=== PATIENT | male | born 1995 | race Caucasian/White ===

== ENCOUNTER 2017-06-08 22:49 | Emergency (ER) | payer MEDICAID, OTHER ==
[~2017-06-08] VITALS: Ht 182.9 cm; Wt 136.1 kg
[~2017-06-08 22:49] MED LIST: ACHD5005 PO; CEFP500T4 PO; CETI5TAB25 PO; CLIN-62 PO; CLIN150C17 PO; CLIN300C3 PO; CYCL10TA9 PO; FLT05NA16 NSEACH; HYDR-3714 PO; HYDR-3816 PO; LACT1CAP57 PO; NAPR-243 PO; NAPR550T PO; ONDA-42 SL; ONDA8TAB13 PO; QTP25T PO; TRAM50TA2 PO; TRAZ150T42 PO; VNL75T PO; [UNRECOGNIZED DRUG - CODE] PO
[2017-06-08] MEDS ORDERED: RX-TRAMADOL 50 MG (ULTRAM) TAB PPK#4 PO STA (23:45)
[2017-06-08] MEDS ORDERED: RX-CLINDAMYCIN 150 MG (CLEOCIN) CAP PPK#4 PO STA (23:45)
[2017-06-08] MEDS ORDERED: CLIN300C11 PO (23:51)
[2017-06-08] MEDS ORDERED: TRAM50TA2 PO (23:51)
--- NOTE | 2017-06-08 23:51 | ED EENT ---
History of Present Illness General Chief Complaint: Dental Problems/Pain Stated Complaint: DENTAL PAIN Nursing Triage Note: RIGHT UPPER DENTAL PAIN X3 DAYS, WORSE TONIGHT. Source: patient Exam Limitations: no limitations History of Present Illness Time seen by provider: 23:35 Initial Comments 22-year-old male patient presents to the emergency department with complaints of right upper dental pain for 3 days. Reports pain is worse tonight. Timing/Duration: gradual Location: dental Prearrival Treatment: no prearrival treatment Modifying Factors: Worse With Other (worse with chewing and palpation) Allergies and Home Medications Allergies Coded Allergies: Penicillins (Unverified Allergy, Severe, STATES HE DIES, 10/03/10) Home Medications Clindamycin HCl 150 Mg Capsule, 300 MG PO TID, #42 Ref 0 Prescribed by: LOUISE AVILES on 09/05/1555 Hydrocodone/Acetaminophen 1 Each Tablet, 1 EACH PO Q6H, #18 Ref 0 Prescribed by: LOUISE AVILES on 09/05/1555 Review of Systems Constitutional: No chills, No dizziness, No fever, No malaise Eyes: No Symptoms Reported Ears: No Symptoms Reported Nose: no symptoms reported Mouth: see HPI, pain, denies swelling Throat: denies pain, denies swelling, denies neck stiffness, denies hoarse, denies painful swallowing, denies difficulty with fluids Respiratory: no symptoms reported Cardiovascular: no symptoms reported Gastrointestinal: No diarrhea, No loss of appetite, No nausea, No vomiting Skin: no symptoms reported Neurological: Denies Headache All Other Systems Reviewed Negative Unless Noted: Yes (Negative excepted noted.) Past Wsjipju-Nwubss-Qtqvye Hx Patient Social History Alcohol Use: Denies Use Recreational Drug Use: No Smoking Status: Current Everyday Smoker Type Used: Cigarettes 2nd Hand Smoke Exposure: Yes Recent Foreign Travel: No Contact w/Someone Who Travel: No Recent Infectious Disease Expo: No Recent Hopitalizations: No Immunizations Up To Date Tetanus Booster (TDap): Less than 5yrs Seasonal Allergies Seasonal Allergies: Yes Surgeries HX Surgeries: No Surgeries: Vasectomy Respiratory Hx Respiratory Disorders: No Cardiovascular Hx Cardiac Disorders: No Neurological Hx Neurological Disorders: No Reproductive System Hx Reproductive Disorders: No Sexually Transmitted Disease: No HIV/AIDS: No Genitourinary Hx Genitourinary Disorders: No Gastrointestinal Hx Gastrointestinal Disorders: No Musculoskeletal Hx Musculoskeletal Disorders: Yes (FREQUENT NECK PAIN) Endocrine Hx Endocrine Disorders: No HEENT HX ENT Disorders: Yes (TMJ, CHRONIC DENTAL PROBLEMS) Cancer Hx Cancer: No Psychosocial Hx Psychiatric Problems: Yes Behavioral Health Disorders: ADD/ADHD, Sleep Difficulties, Anxiety Integumentary HX Skin/Integumentary Disorder: No Blood Transfusions Hx Blood Disorders: No Reviewed Nursing Assessment Reviewed/Agree w Nursing PMH: Yes Family Medical History Significant Family History: No Pertinent Family Hx Family Medial History: Patient reports no known family medical history. Physical Exam Vital Signs Vital Sign - Last 12Hours 06/08/17 23:24 Temp 97.7 Pulse 70 Resp 18 B/P (MAP) 140/101 Pulse Ox 95 O2 Delivery Room Air General Appearance: WD/WN, no apparent distress Eyes: bilateral eye EOMI, bilateral eye PERRL, bilateral eye normal inspection Ears: bilateral ear TM normal, bilateral ear auricle normal, bilateral ear canal normal Nose: normal inspection Mouth/Throat: pharynx normal, dental tenderness (rt upper dental tenderness with multiple dental caries noted. mild swelling and erythema of the rt upper gums.), No excessive drooling, No mandibular swelling, No maxillary swelling Neck: non-tender, full range of motion, supple, normal inspection Cardiovascular: regular rate, rhythm, no murmur Respiratory: lungs clear, normal breath sounds, no respiratory distress Neurologic/Psychiatric: alert, normal mood/affect, oriented x 3 Skin: normal color, warm/dry Laceration Repair : Suture Size: 4-0 Progress/Results/Core Measures Results/Orders My Orders Orders - NOLVIA LEAL Rx-Clindamycin Capsule (Rx-Cleocin Capsu (06/08/17 23:45) Rx-Tramadol Hcl (Rx-Ultram) (06/08/17 23:45) Vital Signs/I&O Vital Sign - Last 12Hours 06/08/17 23:24 Temp 97.7 Pulse 70 Resp 18 B/P (MAP) 140/101 Pulse Ox 95 O2 Delivery Room Air Blood Pressure Mean: 114 Departure Impression Impression: Primary Impression: Dental infection Additional Impression: Dental caries Disposition: 01 HOME, SELF-CARE Condition: Improved Departure-Patient Inst. Decision time for Depature: 23:49 Referrals: [facility] (PCP/Family) Primary Care Physician Patient Instructions: Dental Pain (DC) Add. Discharge Instructions: All discharge instructions reviewed with patient and/or family. Voiced understanding. Medications as instructed. Tylenol extra strength over-the- counter as directed for pain. Ibuprofen 800 mg by mouth every 8 hours as needed for pain. Drink plenty of fluids. Follow-up with the dentist of your choice for dental repair. Call for appointment time tomorrow morning. Return to the emergency department for worsened symptoms or any other concerns. Scripts Tramadol HCl (Tramadol HCl) 50 Mg Tablet 50 MG PO Q4H Y for pain, #14 TAB 0 Refills Prov: NOLVIA LEAL 06/08/17 Clindamycin HCl (Clindamycin HCl) 300 Mg Capsule 300 MG PO QID, #28 CAP 0 Refills Prov: NOLVIA LEAL 06/08/17 NOLVIA LEAL Jun 08, 2017 23:51
[2017-06-09 00:03] VITALS: BP 140/101
== END 2017-06-08 23:57 | disposition home or self-care (01) ==
LOC: EDUNIT# 22:49 → ER 22:51
DX: K04.7 Periapical abscess without sinus (principal); K02.9 Dental caries, unspecified; F90.9 Attention-deficit hyperactivity disorder, unspecified type; F98.8 Other specified behavioral and emotional disorders with onset usually occurring in childhood and adolescence; F41.9 Anxiety disorder, unspecified; F17.210 Nicotine dependence, cigarettes, uncomplicated; Z98.52 Vasectomy status
CPT/HCPCS: 99283

== ENCOUNTER 2019-10-11 12:26 | Emergency (ER) | payer OTHER, MEDICAID ==
[~2019-10-11] VITALS: Ht 182 cm; Wt 136.0 kg
[~2019-10-11 12:26] MED LIST changes: +CLIN300C11 PO; +HYDR-34 PO; -HYDR-3816 PO; +TRM50T PO
[2019-10-11] MEDS ORDERED: LIDOCAINE 1% INJ 20 ML 20 ML VIAL ONE (12:36)
[2019-10-11] MEDS ORDERED: TETANUS,DIPTH,PERTUSS P/F (BOOSTRIX) 0.5 ML VIAL IM ONE (12:45)
[2019-10-11] MEDS ORDERED: LIDOCAINE 1% INJ 50 ML (XYLOCAINE) VIAL IJ ONE (12:45)
--- NOTE | 2019-10-11 13:02 | ED Upper Extremity ---
General Chief Complaint: Laceration Stated Complaint: R THUMB INJ Nursing Triage Note: PT FROM [facility] [employer], PT CUT R THUMB ON METAL AT WORK. PT HAS APPROX 1.5CM LAC TO THUMB, SPURTING BLOOD. Nursing Sepsis Screen: No Definite Risk Source: patient Exam Limitations: no limitations History of Present Illness Date Seen by Provider: Oct 11, 2019 Time Seen by Provider: 12:58 Initial Comments Is to ER with a laceration to the palmar surface proximal phalanx right thumb from a piece of sheet metal at work at [employer] in [place]. Tetanus is not up-to-date. Onset: just prior to arrival Severity: moderate Pain/Injury Location: right thumb Modifying Factors: Worse With Movement Allergies and Home Medications Allergies Coded Allergies: Penicillins (Unverified Allergy, Severe, STATES HE DIES, 10/03/10) Home Medications No Active Prescriptions or Reported Meds Patient Home Medication List Home Medication List Reviewed: Yes Review of Systems Constitutional: see HPI EENTM: see HPI Respiratory: no symptoms reported Cardiovascular: no symptoms reported Genitourinary: no symptoms reported Musculoskeletal: no symptoms reported Skin: see HPI Psychiatric/Neurological: No Symptoms Reported Past Xkbckdr-Ffduph-Smhgyp Hx Patient Social History Alcohol Use: Denies Use Recreational Drug Use: No Smoking Status: Current Everyday Smoker Type Used: Cigarettes 2nd Hand Smoke Exposure: Yes Recent Foreign Travel: No Contact w/Someone Who Travel: No Recent Infectious Disease Expo: No Recent Hopitalizations: No Physical Abuse: No Sexual Abuse: No Immunizations Up To Date Tetanus Booster (TDap): Unknown Seasonal Allergies Seasonal Allergies: Yes Past Medical History Surgeries: Yes Vasectomy Respiratory: No Cardiac: No Neurological: No Reproductive Disorders: No Sexually Transmitted Disease: No HIV/AIDS: No Genitourinary: No Gastrointestinal: No Musculoskeletal: Yes (FREQUENT NECK PAIN) Endocrine: No HEENT: No Cancer: No Psychosocial: Yes ADD/ADHD, Sleep Difficulties, Anxiety Integumentary: No Blood Disorders: No Family Medical History Patient reports no known family medical history. No Pertinent Family Hx Physical Exam Vital Signs Vital Signs - First Documented 10/11/19 12:30 Temp 36.4 Pulse 120 Resp 18 B/P (MAP) 135/100 (112) Pulse Ox 99 Capillary Refill : Less Than 3 Seconds Height, Weight, BMI Height: 6'0" Weight: 300lbs. oz. 136.834087my; 41.00 BMI Method:Stated General Appearance: WD/WN, no apparent distress HEENT: PERRL/EOMI, normal ENT inspection Respiratory: no respiratory distress, no accessory muscle use Shoulder: normal inspection, non-tender Elbow/Forearm: normal inspection, non-tender Wrist: Yes normal inspection Hand: Right, laceration (1.5 cm laceration depth to the subcutaneous tissue palmar/flexor surface proximal phalanx right thumb no foreign body identified. He has reduced sensation of the tip, states it feels a little numb. He is able to flex the thumb at the IP joint against resistance however.) Neurologic/Tendon: normal motor functions, normal tendon functions Neurologic/Psychiatric: alert, normal mood/affect, oriented x 3 Skin: normal color, warm/dry Procedures/Interventions Wound Location: Upper Extremities Wound Length (cm): 1.5 Wound's Depth, Shape: linear, sub Q Wound Explored: clean Anesthesia: 1% Lidocaine Suture Size: 4-0 Number of Sutures: 4 Layer Closure?: 1 Number Deep Layer Sutures: 0 Progress/Results/Core Measures Results/Orders My Orders Orders - CHETAN GAONA APRN Lidocaine 1% Inj 20 Ml (Xylocaine 1% Inj (10/11/19 12:36) Medications Given in ED Current Medications Medications Dose Ordered Sig/Kathy Route Start Time Stop Time Status Last Admin Dose Admin Diphtheria/ Tetanus/Acell Pertussis 0.5 ml ONCE ONCE IM 10/11/19 12:45 10/11/19 12:46 DC 10/11/19 12:41 0.5 ML Lidocaine HCl 20 ml STK-MED ONCE .ROUTE 10/11/19 12:36 10/11/19 12:39 DC 10/11/19 12:42 5 ML Vital Signs/I&O 10/11/19 12:30 Temp 36.4 Pulse 120 Resp 18 B/P (MAP) 135/100 (112) Pulse Ox 99 Blood Pressure Mean: 112 POS Departure Communication (Admissions) He did have a vasovagal type episode involving diaphoresis lightheadedness nausea during suturing, once we were done suturing he was laid back supine, returned to baseline. Impression Primary Impression: Laceration of thumb Qualified Codes: S61.011A - Laceration without foreign body of right thumb without damage to nail, initial encounter Disposition: 01 HOME, SELF-CARE Condition: Stable Departure-Patient Inst. Decision time for Depature: :00 Referrals: [facility] (PCP/Family) Primary Care Physician Patient Instructions: Laceration Repair With Stitches (DC) Add. Discharge Instructions: Keep this clean dry and covered. He can take the bandage off to shower letting water run over it but don't soak this in water such as a hot tub bath tub or swimming pool. Return to ER to have this removed in 7-10 days. Scripts No Active Prescriptions or Reported Meds Work/School Note: Work Release Form Date Seen in the Emergency Department: Oct 11, 2019 Return to Work: Oct 12, 2019 Other Restrictions Listed Below: Dressing on right thumb, no use of right thumb for 7 days CHETAN GAONA APRN Oct 11, 2019 13:02 POS
[2019-10-11 13:17] VITALS: BP 135/100
== END 2019-10-11 13:18 | disposition home or self-care (01) ==
LOC: EDUNIT# 12:26 → ER 12:27
DX: S61.011A Laceration without foreign body of right thumb without damage to nail, initial encounter (principal); F90.9 Attention-deficit hyperactivity disorder, unspecified type; F41.9 Anxiety disorder, unspecified; F17.210 Nicotine dependence, cigarettes, uncomplicated; Z23 Encounter for immunization; Z88.0 Allergy status to penicillin; W26.8XXA Contact with other sharp object(s), not elsewhere classified, initial encounter; Y92.59 Other trade areas as the place of occurrence of the external cause
CPT/HCPCS: 12041; 90471; 90715

== ENCOUNTER 2020-08-12 22:32 | Observation (INO) | payer MEDICAID ==
[~2020-08-12] VITALS: Ht 183 cm; Wt 157.0 kg
--- NOTE | 2020-08-12 23:43 | ED GI ---
General Chief Complaint: Abdominal/GI Problems Stated Complaint: FOOD STUCK Source of Information: Patient Exam Limitations: No Limitations History of Present Illness Date Seen by Provider: Aug 12, 2020 Time Seen by Provider: 23:25 Initial Comments This is a healthy 25-year-old male who presents to the ER if food bolus of chicken stuck in his esophagus. Eating dinner around 9:30 this evening, took a bite of his food and became stuck in his lower esophagus. He is unable to drink any fluids at this time as he experiences emesis anytime he tries to drink or eat anything. Describes sensation as a pressure in his lower esophagus. Denies fever, cough, shortness of breath, chest pain, nausea, or abdominal pain. Allergies and Home Medications Allergies Coded Allergies: Penicillins (Unverified Allergy, Severe, STATES HE DIES, 10/03/10) Home Medications No Active Prescriptions or Reported Meds Patient Home Medication List Home Medication List Reviewed: Yes Review of Systems Review of Systems Constitutional: no symptoms reported EENTM: See HPI Respiratory: No Symptoms Reported Cardiovascular: No Symptoms Reported Gastrointestinal: No Symptoms Reported Genitourinary: No Symptoms Reported Musculoskeletal: no symptoms reported Skin: no symptoms reported Psychiatric/Neurological: No Symptoms Reported Endocrine: No Symptoms Reported Hematologic/Lymphatic: No Symptoms Reported Past Zmwioho-Dglmfs-Fmldlb Hx Patient Social History Type Used: Cigarettes 2nd Hand Smoke Exposure: Yes Recent Foreign Travel: No Contact w/Someone Who Travel: No Recent Hopitalizations: No Immunizations Up To Date Tetanus Booster (TDap): Unknown Seasonal Allergies Seasonal Allergies: Yes Past Medical History Surgeries: Yes Vasectomy Respiratory: No Cardiac: No Neurological: No Reproductive Disorders: No Sexually Transmitted Disease: No HIV/AIDS: No Genitourinary: No Gastrointestinal: No Musculoskeletal: Yes (FREQUENT NECK PAIN) Endocrine: No HEENT: No Cancer: No Psychosocial: Yes ADD/ADHD, Sleep Difficulties, Anxiety Integumentary: No Blood Disorders: No Family Medical History Patient reports no known family medical history. No Pertinent Family Hx Physical Exam Vital Signs Capillary Refill : Height/Weight/BMI Height: 6'0" Weight: 300lbs. oz. 136.493622sm; 41.00 BMI Method:Stated General Appearance: WD/WN, no apparent distress HEENT: PERRL/EOMI, pharynx normal Neck: non-tender, full range of motion, supple, normal inspection Respiratory: chest non-tender, lungs clear, normal breath sounds, no respiratory distress Cardiovascular: normal peripheral pulses, regular rate, rhythm, no edema Gastrointestinal: normal bowel sounds, non tender, soft Extremities: normal range of motion, normal inspection Neurologic/Psychiatric: no motor/sensory deficits, alert, normal mood/affect, oriented x 3 Skin: normal color, warm/dry Procedures/Interventions Suture Size: 4-0 Progress/Results/Core Measures Results/Orders My Orders Orders - SHELDON JEFFERSON CLEANER WALL Nothing By Mouth (08/13/20 Breakfast) Glucagon Emergency Kit (Glucagon Emergen (08/13/20 00:00) Departure Communication (Admissions) Time/Spoke to Admitting Phy: 23:[address] hong at this time. Recommended observation admit and to be scheduled for EGD with biopsy and dilatation in the a.m. Impression Primary Impression: Food impaction of esophagus Disposition: ADMITTED INPATIENT Condition: Stable Admissions Decision to Admit Reason: Admit from ER (Trauma) Decision to Admit/Date: Aug 12, 2020 Time/Decision to Admit Time: 23:44 Departure-Patient Inst. Referrals: [facility]/ARCELIA (PCP) Primary Care Physician CLAUDIA DURAN (Family) Primary Care Physician Scripts No Active Prescriptions or Reported Meds SHELDON JEFFERSON CLEANER WALL Aug 12, 2020 23:43
[2020-08-13] VITALS (15 sets, daily range): BP systolic 113–145; BP diastolic 55–85
[2020-08-13] MEDS ORDERED: GLUCAGON EMERGENCY 1 MG/KIT IM ONE
[2020-08-13] MEDS ORDERED: GLUCAGON EMERGENCY 1 MG/KIT IV ONE
--- NOTE | 2020-08-13 01:30 | NUR ---
BRIAN HOWE III admitted to room 406-1, with an admitting diagnosis of Food Impaction in Esophagus, on 08/13/20 from ED via wheelchair, accompanied by staff.BRIAN HOWE III introduced to surroundings, call light, bed controls, phone, TV, temperature control, lights, meal times, smoking policy, visitor policy, side rail policy, bathrooms and showers. Patient Rights given to patient in the handbook. BRIAN HOWE III verbalizes understanding that [facility] is not responsible for the loss or damage to any personal effects or valuables that are kept in the patients posession during their hospitalization. BRIAN HOWE III verbalizes understanding of Interdisciplinary Patient Education. Patient and/or family were informed about the Rapid Response Team and its purpose.
[2020-08-13] MEDS ORDERED: LORazepam INJ 2 MG/ML (ATIVAN) VIAL IV PRN (01:45)
[2020-08-13] MEDS ORDERED: PROMETHAZINE INJ 25 MG/ML (PHENERGAN) AMP IVP PRN (01:45)
[2020-08-13] MEDS: LACTATED RINGERS 1,000 ML IV SCH ×2 (02:16→12:52)
[2020-08-13] MEDS: ONDANSETRON 4 MG/2 ML (SDV) Z0FRAN IV PRN ×2 (02:16→08:52)
[2020-08-13 05:52] LABS: BASOPHILS # (AUTO) 0.1 10^3/uL (0.0-0.1); BASOPHILS % (AUTO) 1 % (0-10); EOSINOPHILS # (AUTO) 0.4 10^3/uL (0.0-0.3); EOSINOPHILS % (AUTO) 3 % (0-10); HEMATOCRIT 44 % (40-54); HEMOGLOBIN 14.6 g/dL (13.3-17.7); LYMPHOCYTES # (AUTO) 2.2 10^3/uL (1.0-4.0); LYMPHOCYTES % (AUTO) 19 % (12-44); MEAN CORPUSCULAR HEMOGLOBIN 29 pg (25-34); MEAN CORPUSCULAR HGB CONC 33 g/dL (32-36); MEAN CORPUSCULAR VOLUME 89 fL (80-99); MEAN PLATELET VOLUME 10.5 fL (9.0-12.2); MONOCYTES # (AUTO) 0.7 10^3/uL (0.0-1.0); MONOCYTES % (AUTO) 6 % (0-12); NEUTROPHILS % (AUTO) 70 % (42-75); PLATELET COUNT 268 10^3/uL (130-400); WHITE BLOOD COUNT 11.5 10^3/uL (4.3-11.0)
[2020-08-13 06:09] LABS: ALBUMIN 4.3 GM/DL (3.2-4.5); CHLORIDE 103 MMOL/L (98-107); POTASSIUM 4.1 MMOL/L (3.6-5.0); SODIUM 139 MMOL/L (135-145)
[2020-08-13 06:11] LABS: CALCIUM 9.1 MG/DL (8.5-10.1)
[2020-08-13 06:12] LABS: GLUCOSE 88 MG/DL (70-105); TOTAL PROTEIN 7.7 GM/DL (6.4-8.2)
[2020-08-13 06:13] LABS: CARBON DIOXIDE 23 MMOL/L (21-32)
[2020-08-13 06:15] LABS: ALKALINE PHOSPHATASE 88 U/L (40-136); CREATININE SERUM 0.73 MG/DL (0.60-1.30); GFR ESTIMATED > 60
[2020-08-13] MEDS: METOCLOPRAMIDE INJ 10 MG/2 ML (REGLAN) IV SCH ×2 (06:15→12:54)
[2020-08-13 06:16] LABS: BUN/CREATININE RATIO 19
[2020-08-13 06:18] LABS: ALANINE AMINOTRANSFERASE 43 U/L (0-55)
--- NOTE | 2020-08-13 08:45 | NUR ---
ZOFRAN 4MG IV FOR NAUSEA.
--- NOTE | 2020-08-13 12:57 | Conscious Sedation/ASA ---
Conscious Sedation Pre-Proced Time 12:30 ASA Score 2 For ASA 3 and 4: Consider anesthesia and medical clearance. Also, for patients with a history of failed moderate sedation consider anesthesia. Airway Lungs Heart ASA score ASA 1: a normal healthy patient ASA 2: a patient with a mild systemic disease (mid diabetes, controlled hypertension, obesity ASA 3: a patient with a severe systemic disease that limits activity (angina, COPD, prior Myocardial infarction) ASA 4: a patient with an incapacitating disease that is a constant threat to life (CHF, renal failure) ASA 5: a moribund patient not expected to survive 24 hrs. (ruptured aneurysm) ASA 6: a declared brain- patient whose organs are being harvested. For emergent operations, add the letter E after the classification Mallampati Classification Grade 2 Sedation Plan Analgesia, Amnesia, Plan communicated to team members, Discussed options with patient/fam, Discussed risks with patient/fam The patient is an appropriate candidate to undergo the planned procedure, sedation, and anesthesia. The patient immediately re-assessed prior to indication. AYESHA ROA MD Aug 13, 2020 12:57
--- NOTE | 2020-08-13 12:57 | Progress Note-Pre Operative ---
Pre-Operative Progress Note H&P Reviewed The H&P was reviewed, patient examined and no changes noted. Date Seen by Provider: Aug 13, 2020 Time Seen by Provider: 12:30 Date H&P Reviewed: Aug 13, 2020 Time H&P Reviewed: 12:30 Pre-Operative Diagnosis: dysphagia, GERD, esoph FB AYESHA ROA MD Aug 13, 2020 12:57
--- NOTE | 2020-08-13 13:19 | HISTORY AND PHYSICAL ---
DATE OF SERVICE: ATTENDING FIELD REPRESENTATIVE: [facility]. HISTORY OF PRESENT ILLNESS: The patient is a 25-year-old male who presented to the Emergency Department early this morning after developing dysphagia after eating chicken. He reported eating late dinner at around 09:30 p.m. and felt epigastric pressure sensation and was unable to eat more food as well as drink any liquids. He states that he has had some issues with this before in the past as well as gastroesophageal reflux disease. PAST MEDICAL HISTORY: Gastroesophageal reflux disease, ADHD. PAST SURGICAL HISTORY: Facetectomy. ALLERGIES: PENICILLIN. MEDICATIONS: None. SOCIAL HISTORY: Positive smoke 10 pack years. Social alcohol. FAMILY HISTORY: Noncontributory. VITAL SIGNS: Temperature 36.8, blood pressure 113/56, pulse 91, respirations 16, pulse ox 95% on room air. REVIEW OF SYSTEMS: Well-nourished male in no acute distress. He is not experiencing any shortness of breath or difficulty breathing. No chest pain, palpitations, diaphoresis. Intermittent episodes of epigastric burning sensation, who presented with dysphagia. No hematemesis, no coffee ground emesis. No diarrhea, constipation, no red blood per rectum, no dark tarry stools. No fever, chills, no recent inadvertent weight loss. All other review of systems negative. PHYSICAL EXAMINATION: CHEST: Clear. Good breath sounds bilaterally. HEART: Regular, no murmurs. EXTREMITIES: No lower extremity edema, negative Homans sign. HEENT: No scleral icterus. NECK: No cervical lymphadenopathy. ABDOMEN: Soft, nondistended. There is pain in the epigastric region upon deep palpation. No palpable masses. SKIN: Warm, dry. LABORATORY DATA: WBC 11.5, hemoglobin 14.6, hematocrit 44, platelets 268. BUN 14, creatinine 0.73. ASSESSMENT AND PLAN: A 25-year-old male with dysphagia, esophageal foreign body and likely stricture and gastroesophageal reflux disease. We will proceed with an EGD as well as removal of foreign body, biopsies of the GE junction as well as the antrum of the stomach to rule out H. pylori as well as balloon dilatation if indicated. Job ID: [id number] DocumentID: [id number] Dictated Date: 08/13/2020 12:56:32 Frankfurter Inspector Date: 08/13/2020 13:17:47 Dictated By: AYESHA ROA MD
--- NOTE | 2020-08-13 13:30 | NUR ---
TO ENDO PER WC.
[2020-08-13] MEDS ORDERED: LACTATED RINGERS 1,000 ML IV ONE (13:37)
[2020-08-13] MEDS ORDERED: LIDOCAINE JELLY 2% 6 ML SYRINGE ONE (13:45)
[2020-08-13] MEDS ORDERED: fentaNYL INJECTION 100 MCG/2 ML AMP ONE ×2 (13:46→13:56)
[2020-08-13] MEDS ORDERED: MIDAZOLAM 5 MG/5 ML (VERSED) VIAL ONE ×2 (13:46→13:56)
[2020-08-13] MEDS ORDERED: LACTATED RINGERS 1,000 ML IV STA (13:50)
[2020-08-13] MEDS ORDERED: fentaNYL INJECTION 100 MCG/2 ML AMP IVP ONE (14:00)
[2020-08-13] MEDS ORDERED: HURRICAINE EXT TUBE (BENZOCAINE) XX PRN (14:00)
[2020-08-13] MEDS ORDERED: MIDAZOLAM 5 MG/5 ML (VERSED) VIAL IV ONE (14:00)
[2020-08-13] MEDS ORDERED: LIDOCAINE JELLY 2% 6 ML SYRINGE MM PRN (14:00)
[2020-08-13] MEDS ORDERED: HURRICAINE EXT TUBE (BENZOCAINE) ONE (14:15)
--- NOTE | 2020-08-13 14:24 | Progress Note-Post Operative ---
Post-Operative Progess Note Surgeon (s)/Furniture Servicer (s) Surgeon AYESHA ROA MD Furniture Servicer: none Pre-Operative Diagnosis dysphagia, GERD, esoph FB Post-Operative Diagnosis reflux esophagitis(stage 3), distal esophageal stricture, small HH(2cm), moderate gastritis. Procedure & Operative Findings Date of Procedure 08/13/20 Procedure Performed/Findings EGD with bx and balloon dilatation. Anesthesia Type cs Estimated Blood Loss Estimated blood loss (mL): minimal Specimens/Packing Specimens Removed ge jxn, antrum AYESHA ROA MD Aug 13, 2020 14:24
[2020-08-13] MEDS ORDERED: PANT40TA2 PO (14:26)
--- NOTE | 2020-08-13 14:26 | Discharge Inst-Surgical ---
D/C Lap Instructions-KIDO New, Converted, or Re-Newed RX: RX on Chart Follow Up PRN Activity as tolerated High Fiber Diet 25g or more per day Avoid Alcohol, Caffeine, Spicy [place] and Acid foods. Drink 64 fluid oz or more of fluids per day. Symptoms to Report: Fever over 101 degree F, Nausea/Vomiting If any problems/questions: Contact your physician or go to Emergency Room AYESHA ROA MD Aug 13, 2020 14:26
[2020-08-13] MEDS ORDERED: PANTOPRAZOLE 40 MG (PROTONIX) VIAL IV ONE (14:30)
--- NOTE | 2020-08-13 15:00 | NUR ---
REC'D PER WC FROM ENDO. DENIES C/O. TAKING PO WITHOUT DIFFICULTY.
--- NOTE | 2020-08-13 16:15 | NUR ---
DC'D PER WC TO HOME.
--- NOTE | 2020-08-14 00:47 | OPERATIVE REPORT ---
DATE OF SERVICE: 08/13/2020 ATTENDING CLINICIAN: [facility] PREOPERATIVE DIAGNOSIS: Esophageal foreign body, dysphagia, history of gastroesophageal reflux disease. POSTOPERATIVE DIAGNOSES: Reflux esophagitis stage III with distal esophageal stricture and Schatzki's ring, small hiatal hernia 2 cm in size, moderate gastritis, no distal obstructions. PROCEDURE: EGD with biopsy and balloon dilatation. SURGEON: Ayesha Roa MD ANESTHESIA: Conscious sedation. ESTIMATED BLOOD LOSS: Minimal. FINDINGS: Same as postoperative diagnosis. DISPOSITION: The patient tolerated the procedure well. 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 He states that he has been having these symptoms for several years and has had issues with dysphagia on an intermittent basis for several years as well. He reports that this episode persisted significantly longer. He does not report any hematemesis, no coffee ground emesis. He does have significant risk factors including smoking, drinking 2 liters of pop daily as well as a BMI greater than 40. DESCRIPTION OF PROCEDURE: The patient was brought to the endoscopy suite, laid in the left lateral decubitus position with head slightly elevated. After adequate IV pain and stated medications and conscious sedation anesthesia, the mouthpiece was applied. The endoscope was placed in the mouth, visualizing the pharynx and hypopharyngeal region. Vocal cords, epiglottis and vallecula identified and appeared to be normal. Endoscope was then gently intubated. Esophageal opening and esophagus insufflated. The endoscope was then advanced to the first, second and third portion of the esophagus. At the level of the GE junction, a reflux esophagitis stage III identified with distal esophageal stricture and Schatzki's ring identified. A biopsy was taken with forceps with visualization of good hemostasis. The endoscope was then advanced into the stomach and endoscope retroflexed, visualizing a small hiatal hernia 2 cm in size. There was a moderate severity gastritis. No formal ulcerations, polyps, or any neoplasms. A biopsy was taken of the antrum to rule out H. pylori with visualization of good hemostasis. The endoscope was then advanced to the pylorus and the first and second portion of the duodenum, which appeared normal and no distal obstructions. We then proceeded with balloon dilatation of the distal esophageal stricture. First proceeding with 2 and then 4 atmospheres of pressure. We then proceeded to 6 atmospheres of pressure with moderate resistance and left this in place for 60 seconds. This equals approximately 20 mm in luminal diameter. The balloon was then desufflated and removed with visualization of good hemostasis as well as no mucosal tears. The endoscope was then slowly withdrawn while taking a second look and suctioning of residual air with no additional findings. The patient tolerated the procedure well. We will recommend the necessary lifestyle and proceed with smoking cessation as well as avoidance of caffeinated beverages, spicy, greasy and acidic foods. We also will need to proceed with any form of diet and exercise modality on a regular basis for weight loss and maintenance. We will also start him on Protonix 40 mg daily. He may need a repeat dilatation and he may follow up with us at any time. Job ID: [id number] DocumentID: [id number] Dictated Date: 08/13/2020 14:20:22 Filling Station Equipment Mechanic Date: 08/14/2020 00:46:54 Dictated By: AYESHA ROA MD MTDD
== END 2020-08-13 16:18 | disposition home or self-care (01) ==
LOC: EDUNIT# 22:32 → ER 22:33 → 4TH 23:58
PROVIDERS: ADMIT Surgery; ATTEND Surgery
DX: K21.00 Gastro-esophageal reflux disease with esophagitis, without bleeding (principal); K22.2 Esophageal obstruction; K44.9 Diaphragmatic hernia without obstruction or gangrene; K29.70 Gastritis, unspecified, without bleeding; T18.108A Unspecified foreign body in esophagus causing other injury, initial encounter; F17.210 Nicotine dependence, cigarettes, uncomplicated; Z79.899 Other long term (current) drug therapy; Z88.0 Allergy status to penicillin; Z20.828 Contact with and (suspected) exposure to other viral communicable diseases
CPT/HCPCS: 43239; 43249; 80053; 85025; 87081; 88305; 88312; 96374; 99284; U0002; 36415; 87635

== ENCOUNTER 2020-10-16 16:40 | Emergency (ER) | payer MEDICAID ==
[~2020-10-16 16:40] MED LIST changes: -CLIN300C11 PO; +CLIN300C12 PO; +PANT40TA2 PO
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
== END 2020-10-16 16:59 | disposition left against medical advice (07) ==
LOC: EDUNIT# 16:40 → ER 16:41
DX: R68.83 Chills (without fever) (principal); R19.7 Diarrhea, unspecified; Z20.828 Contact with and (suspected) exposure to other viral communicable diseases

== ENCOUNTER 2021-08-29 16:06 | Emergency (ER) | payer MEDICAID ==
[~2021-08-29] VITALS: Ht 182 cm; Wt 136.0 kg
[~2021-08-29 16:06] MED LIST changes: -CLIN150C17 PO; +CLIN150C20 PO
[2021-08-29] MEDS ORDERED: RT-ALBUTEROL HFA 8.5 GM INHALER IH STA (16:20)
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
[2021-08-29] MEDS ORDERED: RT-ALBUTEROL/IPRATROPIUM 3 ML (DUONEB) VIAL INH ONE (17:00)
[2021-08-29] MEDS ORDERED: methylPREDNISolone 125 MG (Solu-MEDROL) VIAL IM ONE (17:15)
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
[2021-08-29 18:44] VITALS: BP 131/85
== END 2021-08-29 18:44 | disposition home or self-care (01) ==
LOC: EDUNIT# 16:06 → ER 16:08
DX: J98.01 Acute bronchospasm (principal); Z77.098 Contact with and (suspected) exposure to other hazardous, chiefly nonmedicinal, chemicals
CPT/HCPCS: 71045; 94640

== ENCOUNTER 2023-09-01 20:42 | Emergency (ER) | payer MEDICAID ==
[~2023-09-01] VITALS: Ht 183 cm; Wt 136.0 kg
[~2023-09-01 20:42] MED LIST changes: +CLIN-144 PO; -CLIN300C12 PO
[2023-09-01] MEDS ORDERED: DEXT10TA24 (20:56)
--- NOTE | 2023-09-01 21:11 | ED Chest Pain ---
General Chief Complaint: Chest Wall Stated Complaint: VOMITING BLOOD/CHEST PAIN Nursing Triage Note: c/o right chest pain x1 day, worse x30min. reports vomitting blood tonight. Source: patient, family (dad) Exam Limitations: no limitations History of Present Illness Date Seen by Provider: Sep 01, 2023 Time Seen by Provider: 21:00 Initial Comments Patient is a 28-year-old male who presents to the emergency room with a chief complaint of severe substernal and right-sided chest pain after eating some chicken salad, he felt like it got caught. He states he started vomiting for about 10 minutes and ultimately was vomiting up bright red blood. He states the pain was initially a "10 out of 10" currently a "7". He has never had a pain this severe before. Has had prior EGD with esophageal dilatation. Dr. ROA did this in 2019, grade 3 distal esophagitis, small hiatal hernia, gastritis. Patient is supposed to be on acid reducers but is not taking them. He is on medication for ADHD. He frequently has heartburn and uses Tums. He is a smoker. He drinks alcohol, large amounts infrequently. Drinks a lot of soda. He is morbidly obese. No other chronic medical conditions, his primary care physician is Dr. Odom at [facility]. He states a few months ago he had his wellness visit. Timing/Duration: 1/2 hour Severity/Quality: severe, aching, sharp Location: other (mid and right chest) Radiation: no radiation Activities at Onset: other (eating) Prior CP/Workup: no prior cardiac workup ASA po GUEST SERVICE AGENT: No NTG SL GUEST SERVICE AGENT: No Associated Symptoms: nausea/vomiting (hematochezia) Allergies and Home Medications Allergies Coded Allergies: Penicillins (Unverified Allergy, Severe, STATES HE DIES, 10/03/10) Patient Home Medication List Home Medication List Reviewed: Yes Dextroamphetamine/Amphetamine (Amphetamine Salts 10 mg Tablet) 10 Mg Tablet, (Reported) Entered as Reported by: FARZANEH MCNALLY on 09/01/232055 Last Action: New Order Pantoprazole Sodium (Protonix) 40 Mg , 40 MG PO DAILY Prescribed by: CORNELIO ERICKSON on 09/01/232221 Sucralfate (Carafate) 1 Gram Tablet, 1 GM PO QIDACHS Prescribed by: CORNELIO ERICKSON on 10/24/23 2222 Discontinued Medications Pantoprazole Sodium (Protonix) 40 Mg Tablet.dr, 40 MG PO DAILY Discontinued Reason: No Longer Taking Prescribed by: AYESHA ROA on 08/13/20 1426 Last Action: Discontinued Review of Systems Review of Systems Constitutional: see HPI EENTM: No Symptoms Reported Respiratory: No Symptoms Reported Cardiovascular: Chest Pain Gastrointestinal: Denies Blood Streaked Stools; Vomiting, Other (vomiting blood) Genitourinary: No Symptoms Reported Musculoskeletal: no symptoms reported Skin: no symptoms reported Psychiatric/Neurological: No Symptoms Reported Past Cfjmtgc-Bxsqfh-Mvyebk Hx Patient Social History Tobacco Use?: Yes Substance use?: No Alcohol Use?: Yes Alcohol Frequency: Once in a while Pt feels they are or have been: No Immunizations Up To Date Tetanus Booster (TDap): Unknown Seasonal Allergies Seasonal Allergies: Yes Past Medical History Surgery/Hospitalization HX: esophageal stricture dilation, gerd Surgeries: Yes Vasectomy Respiratory: No Cardiac: No Neurological: No Reproductive Disorders: No Sexually Transmitted Disease: No HIV/AIDS: No Genitourinary: No Gastrointestinal: No Musculoskeletal: Yes (FREQUENT NECK PAIN) Endocrine: No HEENT: No Cancer: No Psychosocial: Yes ADD/ADHD, Sleep Difficulties, Anxiety Integumentary: No Blood Disorders: No Family Medical History Patient reports no known family medical history. No Pertinent Family Hx Physical Exam Vital Signs Vital Signs - First Documented 09/01/23 20:49 Temp 37.0 Pulse 66 Resp 18 B/P (MAP) 168/106 (126) Pulse Ox 99 O2 Delivery Room Air Capillary Refill : Less Than 3 Seconds Height, Weight, BMI Height: 6'0" Weight: 300lbs. oz. 136.896812lk; 40.00 BMI Method:Stated General Appearance: No Apparent Distress, WD/WN, Anxious, Other (VSS (slightly hypertensive - wrist cuff right wrist)) HEENT: PERRL/EOMI Neck: Normal Inspection Respiratory: Lungs Clear, Normal Breath Sounds, No Accessory Muscle Use, No Respiratory Distress, Other (chest wall tender to palpation over the mid sternum and right upper ribs) Cardiovascular: Regular Rate, Rhythm, Normal Peripheral Pulses, Other (no Renetta's crunch; ) Gastrointestinal: Soft, Guarding (mild tenderness epigastrum) Extremity: Normal Capillary Refill, Normal Inspection Neurologic/Psychiatric: Alert, Oriented x3, No Motor/Sensory Deficits, Normal Mood/Affect Skin: Normal Color, Warm/Dry Procedures/Interventions Suture Size: 4-0 Progress/Results/Core Measures Results/Orders Lab Results Laboratory Tests Test 09/01/23 21:18 Range/Units White Blood Count 7.7 4.3-11.0 10^3/uL Red Blood Count 4.65 4.30-5.52 10^6/uL Hemoglobin 13.8 13.3-17.7 g/dL Hematocrit 42 40-54 % Mean Corpuscular Volume 90 80-99 fL Mean Corpuscular Hemoglobin 30 25-34 pg Mean Corpuscular Hemoglobin Concent 33 32-36 g/dL Red Cell Distribution Width 13.5 10.0-14.5 % Platelet Count 222 130-400 10^3/uL Mean Platelet Volume 9.6 9.0-12.2 fL Immature Granulocyte % (Auto) 0 % Neutrophils (%) (Auto) 52 42-75 % Lymphocytes (%) (Auto) 34 12-44 % Monocytes (%) (Auto) 8 0-12 % Eosinophils (%) (Auto) 4 0-10 % Basophils (%) (Auto) 1 0-10 % Neutrophils # (Auto) 4.0 1.8-7.8 10^3/uL Lymphocytes # (Auto) 2.6 1.0-4.0 10^3/uL Monocytes # (Auto) 0.6 0.0-1.0 10^3/uL Eosinophils # (Auto) 0.3 0.0-0.3 10^3/uL Basophils # (Auto) 0.0 0.0-0.1 10^3/uL Immature Granulocyte # (Auto) 0.0 0.0-0.1 10^3/uL Prothrombin Time 12.6 12.2-14.7 SEC INR Comment 0.9 0.8-1.4 Activated Partial Thromboplast Time 29 24-35 SEC Sodium Level 142 135-145 MMOL/L Potassium Level 4.1 3.6-5.0 MMOL/L Chloride Level 106 98-107 MMOL/L Carbon Dioxide Level 25 21-32 MMOL/L Anion Gap 11 5-14 MMOL/L Blood Urea Nitrogen 7 7-18 MG/DL Creatinine 0.77 0.60-1.30 MG/DL Estimat Glomerular Filtration Rate 124 BUN/Creatinine Ratio 9 Glucose Level 98 70-105 MG/DL Calcium Level 8.9 8.5-10.1 MG/DL Corrected Calcium 9.1 8.5-10.1 MG/DL Magnesium Level 2.0 1.6-2.4 MG/DL Total Bilirubin 0.4 0.1-1.0 MG/DL Aspartate Amino Transf (AST/SGOT) 23 5-34 U/L Alanine Aminotransferase (ALT/SGPT) 23 0-55 U/L Alkaline Phosphatase 92 40-136 U/L Troponin I < 0.028 <0.028 NG/ML Total Protein 6.6 6.4-8.2 GM/DL Albumin 3.7 3.2-4.5 GM/DL My Orders Orders - CORNELIO ERICKSON MD Cbc And Automated Diff (09/01/23 21:08) Magnesium (09/01/23 21:08) Chest 1 View, Ap/Pa Only (09/01/23 21:08) Comprehensive Metabolic Panel (09/01/23 21:08) Protime With Inr (09/01/23 21:08) Partial Thromboplastin Time (09/01/23 21:08) Monitor-Rhythm Ecg Trace Only (09/01/23 21:08) Ed Iv/Invasive Line Start (09/01/23 21:08) Troponin I Joshua (09/01/23 21:08) Antacid Suspension (Antacid Suspension (09/01/23 21:15) Lidocaine 2% Viscous 15 Ml (Xylocaine Vi (09/01/23 21:15) Sucralfate Tablet (Sucralfate Tablet) (09/01/23 21:15) Pantoprazole Injection (Pantoprazole Inj (09/01/23 21:15) Medications Given in ED Current Medications Medications Dose Ordered Sig/Kathy Route Start Time Stop Time Status Last Admin Dose Admin Al Hydrox/Mg Hydrox/Simethicone 30 ml ONCE ONCE PO 09/01/23 21:15 09/01/23 21:16 DC 09/01/23 21:23 30 ML Lidocaine HCl 5 ml ONCE ONCE PO 09/01/23 21:15 09/01/23 21:16 DC 09/01/23 21:23 5 ML Pantoprazole 80 mg ONCE ONCE IV 09/01/23 21:15 09/01/23 21:16 DC 09/01/23 21:23 80 MG Sucralfate 1 gm ONCE ONCE PO 09/01/23 21:15 09/01/23 21:16 DC 09/01/23 21:23 1 GM Vital Signs/I&O 09/01/23 09/01/23 20:49 22:25 Temp 37.0 36.4 Pulse 66 61 Resp 18 14 B/P (MAP) 168/106 (126) 141/103 Pulse Ox 99 99 O2 Delivery Room Air Room Air Blood Pressure Mean: 126 Progress Progress Note : Time: 22:19 Progress Note Patient seen and evaluated by me. Evaluation today includes "chest pain protocol" to include CBC, Chem-12, coags, troponin, EKG, single view chest x- ray. Pertinent physical exam findings well-developed well-nourished morbidly obese 28-year-old mild distress due to right anterior chest wall pain and heartburn. Heart is regular (no lucina's crunch) , lungs are clear. Vital signs are stable slightly hypertensive with a diastolic of 112 on arrival. Normal oxygen saturations. Abdomen slightly tender in the epigastrium. No lower extremity edema or calf tenderness. Differential diagnosis includes esophagitis, Nancy-Shah tear, gastric ulcer, atypical chest pain/ACS Labs, EKG and imaging independently reviewed and interpreted by me. His CBC is completely normal. Chem-12 is completely normal. Coags are within normal limits. Troponin is undetectable. EKG is normal sinus without ectopy or ST seg ment change. Chest x-ray shows no concerning findings on my interpretation however the radiologist read states patchy hazines in the right perihilar region. Patient is treated with 30 mL of Maalox, 5 mL of viscous lidocaine and a gram of Carafate. He was also given 80 mg of Protonix IV. He had mild to moderate improvement in his symptoms. I am not concerned at this point for c oronary etiology of his chest pain. He has longstanding acid reflux with prior diagnosis of esophagitis and early gastric ulcer. He had no further vomiting in the emergency department. Not nauseated. Strongly encouraged him to be compliant with his acid roller helper, will provide a prescription of Protonix 40 mg daily. I am also giving him Carafate 4 times a day. Have advised that he call Dr. ROA's office tomorrow for a follow-up appointment as likely he needs to have repeat EGD. Return precautions provided in both verbal and written format. All questions are sought and answered Initial ECG Impression Date: Sep 01, 2023 Initial ECG Impression Time: 20:55 Initial ECG Rate: 68 Initial ECG Rhythm: Normal Sinus Initial ECG Intervals TX 169 QRS 98 QTc 385 Initial ECG Impression: Nonspecific Changes (NSSTW changes inferiorly) Diagnostic Imaging Diagonstic Imaging: Xray Plain Films/CT/US/NM/MRI: chest Comments [facility]. [place], [place] NAME: BRIAN HOWE III [facility] REC#: [id number] PT STATUS: REG ER : 1995 PHYSICIAN: CORNELIO ERICKSON MD ADMIT DATE: 09/01/23/ER Draft Date of Exam:09/01/23 CHEST 1 VIEW, AP/PA ONLY INDICATION: Chest pain Single AP view of the chest is obtained. Comparison is made to study of 08/29/2021. Heart size and pulmonary vascularity are within normal limits. There is mild increased density in the right perihilar region which may be due to mild edema or pneumonitis. There is no lobar consolidation. No pleural fluid is seen. IMPRESSION: Mild right perihilar edema and/or pneumonitis without other acute abnormality. Dictated on workstation # [id number] Dict: 09/01/232128 Trans: 09/01/232131 [facility] [id number] Interpreted by: SYLVIA BERNAL MD Electronically signed by: Counseling-Symptomatic: 3-10 Minutes Follow-up with PCP to: Discuss Further Options Departure Impression Primary Impression: Esophagitis Additional Impression: Hematemesis Qualified Codes: K92.0 - Hematemesis Disposition: HOME, SELF-CARE Condition: Stable Departure-Patient Inst. Decision time for Depature: 22:20 Referrals: BECKI ODOM MD, TAKAAKI MD Patient Instructions: SMOKING CESSATION, Acid Reflux and GERD in Adults (DC) Add. Discharge Instructions: You need to start taking an acid roller helper daily. I am also giving you a prescription for Carafate. This coats the stomach and will help with acid reflux symptoms. If you have any return of vomiting with bleeding please return to the emergency department for reevaluation. You can take extra strength tylenol - 2 pills - every 6 hours for the chest muscle pain, as well as use Icy Hot/ BioFreeze for the soreness. Please call Dr. ROA's office tomorrow to schedule a follow-up appointment as you likely need a repeat upper scope. I would strongly encourage you to quit smoking as this is the biggest risk factor for ulcer formation and risk for cancer. Scripts Sucralfate (Carafate) 1 Gram Tablet 1 GM PO JUAN ANTONIO, #120 TAB Prov: CORNELIO ERICKSON MD 09/01/23 Pantoprazole Sodium (Protonix) 40 Mg Shweta. 40 MG PO DAILY for 30 Days, #30 TAB Prov: CORNELIO ERICKSON MD 09/01/23 Copy Copies To 1: AYESHA ROA MD Copies To 2: BECKI ODOM MD, KATHRYN M MD Sep 01, 2023 21:11
[2023-09-01] MEDS ORDERED: PANTOPRAZOLE INJECTION 40 MG VIAL IV ONE (21:15)
[2023-09-01] MEDS ORDERED: SUCRALFATE 1 GM TABLET PO ONE (21:15)
[2023-09-01] MEDS ORDERED: ANTACID SUSPENSION 30 ML UDC PO ONE (21:15)
[2023-09-01] MEDS ORDERED: LIDOCAINE 2% VISCOUS 15 ML UDC PO ONE (21:15)
[2023-09-01 21:30] LABS: BASOPHILS % (AUTO) 1 % (0-10); EOSINOPHILS # (AUTO) 0.3 10^3/uL (0.0-0.3); EOSINOPHILS % (AUTO) 4 % (0-10); HEMATOCRIT 42 % (40-54); HEMOGLOBIN 13.8 g/dL (13.3-17.7); LYMPHOCYTES # (AUTO) 2.6 10^3/uL (1.0-4.0); LYMPHOCYTES % (AUTO) 34 % (12-44); MEAN CORPUSCULAR HEMOGLOBIN 30 pg (25-34); MEAN CORPUSCULAR HGB CONC 33 g/dL (32-36); MEAN CORPUSCULAR VOLUME 90 fL (80-99); MEAN PLATELET VOLUME 9.6 fL (9.0-12.2); MONOCYTES # (AUTO) 0.6 10^3/uL (0.0-1.0); MONOCYTES % (AUTO) 8 % (0-12); NEUTROPHILS % (AUTO) 52 % (42-75); PLATELET COUNT 222 10^3/uL (130-400); WHITE BLOOD COUNT 7.7 10^3/uL (4.3-11.0)
--- NOTE | 2023-09-01 21:32 | Diagnostic Imaging Report ---
INDICATION: Chest pain Single AP view of the chest is obtained. Comparison is made to study of 08/29/2021. Heart size and pulmonary vascularity are within normal limits. There is mild increased density in the right perihilar region which may be due to mild edema or pneumonitis. There is no lobar consolidation. No pleural fluid is seen. IMPRESSION: Mild right perihilar edema and/or pneumonitis without other acute abnormality. Dictated by: Dictated on workstation # [id number]
[2023-09-01 21:49] LABS: ALANINE AMINOTRANSFERASE 23 U/L (0-55); ALBUMIN 3.7 GM/DL (3.2-4.5); ALKALINE PHOSPHATASE 92 U/L (40-136); BILIRUBIN,TOTAL 0.4 MG/DL (0.1-1.0); BUN/CREATININE RATIO 9; CALCIUM 8.9 MG/DL (8.5-10.1); CARBON DIOXIDE 25 MMOL/L (21-32); CHLORIDE 106 MMOL/L (98-107); CREATININE SERUM 0.77 MG/DL (0.60-1.30); GFR ESTIMATED 124; GLUCOSE 98 MG/DL (70-105); POTASSIUM 4.1 MMOL/L (3.6-5.0); SODIUM 142 MMOL/L (135-145); TOTAL PROTEIN 6.6 GM/DL (6.4-8.2)
[2023-09-01 21:54] LABS: INR 0.9 (0.8-1.4); PROTHROMBIN TIME PATIENT 12.6 SEC (12.2-14.7)
[2023-09-01] MEDS ORDERED: PANT40SU PO (22:22)
[2023-09-01] MEDS ORDERED: SUCR1TAB36 PO (22:22)
[2023-09-01 22:25] VITALS: BP 141/103
== END 2023-09-01 22:28 | disposition home or self-care (01) ==
LOC: EDUNIT# 20:42 → ER 20:44
DX: K20.90 Esophagitis, unspecified without bleeding (principal); K92.0 Hematemesis; F90.9 Attention-deficit hyperactivity disorder, unspecified type; E66.01 Morbid (severe) obesity due to excess calories; F17.200 Nicotine dependence, unspecified, uncomplicated; Z68.41 Body mass index [BMI] 40.0-44.9, adult; Z79.899 Other long term (current) drug therapy; Z87.19 Personal history of other diseases of the digestive system
CPT/HCPCS: 36415; 71045; 80053; 83735; 84484; 85025; 85610; 85730; 93005; 93041; 96374

== ENCOUNTER 2023-09-07 11:43 | Outpatient (CLI) | payer MEDICAID ==
[~2023-09-07] VITALS: Ht 182.8 cm; Wt 141.6 kg
[~2023-09-07 11:43] MED LIST changes: +DEXT10TA24; +PANT40SU PO; +SUCR1TAB36 PO
== END 2023-09-07 12:27 | disposition home or self-care (01) ==
LOC: PREOP 11:43
PROVIDERS: ATTEND Surgery
DX: Z01.818 Encounter for other preprocedural examination (principal)

== ENCOUNTER 2023-09-09 12:51 | Day surgery (SDC) | payer MEDICAID ==
[~2023-09-09] VITALS: Ht 182.8 cm; Wt 141.6 kg
[2023-09-09] MEDS ORDERED: LACTATED RINGERS 1,000 ML 1,000 ML IV STA (12:55)
--- NOTE | 2023-09-09 12:59 | Progress Note-Pre Operative ---
Pre-Operative Progress Note Date of Available H&P: Sep 09, 2023 Date H&P Reviewed: Sep 09, 2023 Time H&P Reviewed: 12:45 History & Physical: No changes noted Pre-Operative Diagnosis: GERD, dysphagia AYESHA ROA MD Sep 09, 2023 12:59
[2023-09-09] MEDS ORDERED: ONDANSETRON INJECTION 4 MG/2 ML (SDV) IVP PRN (13:00)
[2023-09-09] MEDS ORDERED: HURRICAINE EXT TUBE (BENZOCAINE) XX PRN (13:00)
[2023-09-09] MEDS ORDERED: ONDANSETRON 4 MG ORAL DISSOLVE TABLET PO PRN (13:00)
[2023-09-09] MEDS ORDERED: LIDOCAINE JELLY 2% 6 ML SYRINGE MM PRN (13:00)
--- NOTE | 2023-09-09 13:00 | Discharge Inst-Surgical ---
D/C Lap Instructions-CRISPIN Follow Up Activity as tolerated High Fiber Diet 25g or more per day Avoid Alcohol, Caffeine, Spicy Yoe and Acid foods. Drink 64 fluid oz or more of fluids per day. Symptoms to Report: Fever over 101 degree F, Nausea/Vomiting If any problems/questions: Contact your physician or go to Emergency Room AYESHA ROA MD Sep 09, 2023 13:00
[2023-09-09 13:07] VITALS: BP 131/77
[2023-09-09] MEDS ORDERED: LIDOCAINE JELLY 2% 6 ML SYRINGE ONE ×2 (14:28→14:32)
[2023-09-09 14:35] VITALS: BP 131/77
== END 2023-09-09 14:35 | disposition home or self-care (01) ==
LOC: ENDO 12:51
PROVIDERS: ATTEND Surgery
DX: K21.00 Gastro-esophageal reflux disease with esophagitis, without bleeding (principal); K27.9 Peptic ulcer, site unspecified, unspecified as acute or chronic, without hemorrhage or perforation; Z87.891 Personal history of nicotine dependence; Z53.8 Procedure and treatment not carried out for other reasons